=== PATIENT | female | born 2000 | race African-American/Black ===

== ENCOUNTER 2020-10-10 12:54 | Emergency (ER) | payer OTHER ==
[~2020-10-10] VITALS: Ht 165.1 cm; Wt 114.3 kg
[2020-10-10] MEDS ORDERED: IBUPROFEN IB200 MG PO (13:53)
== END 2020-10-10 14:35 | disposition home or self-care (01) ==
LOC: FSED 13:09
DX: R51.9 Headache, unspecified (principal); V43.62XA Car passenger injured in collision with other type car in traffic accident, initial encounter; Y92.488 Other paved roadways as the place of occurrence of the external cause
CPT/HCPCS: 99283